=== PATIENT | female | born 1960 | race Caucasian/White ===

== ENCOUNTER 2021-12-09 11:00 | Outpatient (CLI) | payer MEDICARE ==
[~2021-12-09 11:00] MED LIST: Magnevist 469MG/ML 20 ML VIAL ONE
== END 2021-12-09 11:01 | disposition home or self-care (01) ==
LOC: MRI 11:00
DX: G35 Multiple sclerosis (principal)
CPT/HCPCS: 72156; 82565; A9579

== ENCOUNTER 2022-02-25 09:48 | Outpatient (CLI) | payer MEDICARE | END 2022-02-25 09:49 | disposition home or self-care (01) | LOC: MRI 09:48 | PROVIDERS: ATTEND Psychiatry & Neurology Sleep Medicine | DX: G35 Multiple sclerosis (principal); R93.0 Abnormal findings on diagnostic imaging of skull and head, not elsewhere classified | CPT/HCPCS: 70553; 82565 ==

== ENCOUNTER 2022-03-04 12:43 | Outpatient (CLI) | payer MEDICARE | END 2022-03-04 12:44 | disposition home or self-care (01) | LOC: MRI 12:43 | PROVIDERS: ATTEND Neurological Surgery | DX: M41.9 Scoliosis, unspecified (principal); M54.50 Low back pain, unspecified; M47.816 Spondylosis without myelopathy or radiculopathy, lumbar region; M47.814 Spondylosis without myelopathy or radiculopathy, thoracic region | CPT/HCPCS: 72146; 72148 ==